=== PATIENT | male | born 1965 | race African-American/Black ===

== ENCOUNTER 2024-05-13 16:14 | Emergency (ER) | payer MEDICARE, OTHER ==
[~2024-05-13] VITALS: Ht 170.2 cm; Wt 85.0 kg
[2024-05-13 16:17] VITALS: BP 176/100; PULSE 76; RESP 16; TEMP 98.7; O2SAT 100
[2024-05-13] MEDS ORDERED: LORA10CA MT (18:34)
[2024-05-13] MEDS ORDERED: IBUP-1523 MT (18:34)
[2024-05-13] MEDS ORDERED: IBUP-1525 MT (18:34)
[2024-05-13] MEDS ORDERED: FLUT9.9S BOTHNSTRLS (18:34)
[2024-05-13] MEDS ORDERED: P50 MT (18:34)
[2024-05-13] MEDS ORDERED: ISOP30DR11 EACH EAR (18:35)
== END 2024-05-13 23:35 | disposition home or self-care (01) ==
LOC: ER 16:14
DX: J30.9 Allergic rhinitis, unspecified (principal); J44.9 Chronic obstructive pulmonary disease, unspecified; E11.9 Type 2 diabetes mellitus without complications; I10 Essential (primary) hypertension; Z88.2 Allergy status to sulfonamides; Z88.6 Allergy status to analgesic agent; Z88.8 Allergy status to other drugs, medicaments and biological substances
CPT/HCPCS: 99283

== ENCOUNTER 2024-05-23 21:24 | Emergency (ER) | payer MEDICARE, OTHER ==
[~2024-05-23] VITALS: Ht 167.6 cm; Wt 80.0 kg
[~2024-05-23 21:24] MED LIST: FLUT9.9S BOTHNSTRLS; IBUP-1523 MT; IBUP-1525 MT; ISOP30DR11 EACH EAR; LORA10CA MT; P50 MT
[2024-05-23 21:26] VITALS: O2SAT 97
[2024-05-23] MEDS ORDERED: ALBUTEROL (0.083%) 2.5MG/3ML NEB HHN STA (21:33)
[2024-05-23] MEDS ORDERED: ACETAMINOPHEN 1000MG/100ML 100 ML IV ONE (21:45)
[2024-05-23] MEDS ORDERED: SODIUM CHLORIDE 0.9% 1,000 ML IV ONE (21:45)
[2024-05-23 23:50] LABS: *AMPHETAMINES SCREEN URINE NEGATIVE (NEGATIVE); *BARBITURATES SCREEN URINE NEGATIVE (NEGATIVE); *BENZODIAZEPINES SCREEN URINE NEGATIVE (NEGATIVE)
[2024-05-23 23:51] LABS: *COCAINE SCREEN URINE NEGATIVE (NEGATIVE); CANNABINOID URINE SCREEN NEGATIVE (NEGATIVE); ECSTASY MDMA SCREEN URINE NEGATIVE (NEGATIVE); METHADONE URINE SCREEN NEGATIVE (NEGATIVE); OPIATES URINE SCREEN NEGATIVE (NEGATIVE); PHENCYCLIDINE URINE SCREEN NEGATIVE (NEGATIVE)
[2024-05-24 00:05] LABS: BASOPHILS % 0.4 % (0.0-2.0); EOSINOPHILS % 3.8 % (0.0-5.0); HEMATOCRIT. 34.7 % (42.0-52.0); HEMOGLOBIN. 11.7 g/dL (14.0-18.0); LYMPHOCYTES % 23.2 % (20.0-50.0); MEAN CORPUSCULAR HEMOGLOBIN 30.5 pg (28.0-32.0); MEAN CORPUSCULAR HGB CONC 33.6 g/dL (31.0-37.0); MEAN CORPUSCULAR VOLUME 90.7 fL (80.0-94.0); MEAN PLATELET VOLUME 8.3 fl (7.4-10.4); MONOCYTES % 12.2 % (2.0-8.0); NEUTROPHILS % 60.4 % (40.0-76.0); PLATELET 198 x1000/uL (130-400); RED BLOOD CELL COUNT 3.82 mill/uL (4.7-6.1); RED CELL DISTRIBUTION WIDTH 15.3 % (11.6-14.6)
[2024-05-24 00:08] LABS: CHLORIDE 112 mEq/L (98-107); POTASSIUM 4.6 mEq/L (3.5-5.1); SODIUM 143 mEq/L (136-145)
[2024-05-24 00:09] LABS: CALCIUM 8.5 mg/dL (8.7-10.4); CARBON DIOXIDE 22 mEq/L (21-32)
[2024-05-24 00:10] LABS: INR 0.8; PARTIAL THROMBOPLASTIN TIME 22.2 sec (23.4-31.0); PROTHROMBIN TIME 9.5 sec (9.6-11.0)
[2024-05-24 00:14] LABS: CREATININE 2.1 mg/dL (0.6-1.3); GLUCOSE 134 mg/dL (70-105); UREA NITROGEN BLOOD 33 mg/dL (9-23)
[2024-05-24 00:15] LABS: TROPONIN I HIGH SENSITIVITY 12 ng/L (3.0-53)
[2024-05-24 00:18] LABS: ETHANOL BLOOD < 10 mg/dL (<10)
[2024-05-24] MEDS ORDERED: ACET-2708 MT (00:26)
[2024-05-24] MEDS ORDERED: ALBU90AE INH (00:26)
[2024-05-24] MEDS ORDERED: GUAI-453 MT (00:26)
[2024-05-24] MEDS ORDERED: ACETAMINOPHEN 325MG TABLET PO ONE (00:30)
[2024-05-24] MEDS ORDERED: GUAIFENESIN 600MG ER TABLET PO ONE (00:30)
[2024-05-24 04:43] VITALS: BP 157/98; PULSE 97; RESP 18; TEMP 36.39180; O2SAT 97
== END 2024-05-24 04:47 | disposition home or self-care (01) ==
LOC: ER 21:24
DX: B34.9 Viral infection, unspecified (principal); R05.9 Cough, unspecified; E11.22 Type 2 diabetes mellitus with diabetic chronic kidney disease; E11.40 Type 2 diabetes mellitus with diabetic neuropathy, unspecified; I12.9 Hypertensive chronic kidney disease with stage 1 through stage 4 chronic kidney disease, or unspecified chronic kidney disease; N18.9 Chronic kidney disease, unspecified; Z79.1 Long term (current) use of non-steroidal anti-inflammatories (NSAID); Z88.2 Allergy status to sulfonamides; Z88.6 Allergy status to analgesic agent; Z88.8 Allergy status to other drugs, medicaments and biological substances; Z20.822 Contact with and (suspected) exposure to COVID-19; Z79.899 Other long term (current) drug therapy
CPT/HCPCS: 80305; 80048; 80320; 83880; 83605; 85025; 85610; 85730; 87040; 87086; 84484; 87804 ×2; 36415; 71045; 93005; 99285; 87426; J7030; G0480; J0131